=== PATIENT | male | born 1945 | race Caucasian/White ===

== ENCOUNTER → 2017-08-22 09:09 | Outpatient (CLI) | payer MEDICARE, OTHER, SELFPAY ==
--- NOTE | 2017-08-22 | DI.US.S_ITS ---
PROCEDURE: US RETRO PERITONEAL LIMITED INDICATIONS: AAA SCREENING TECHNIQUE: Real time scanning was performed of the aorta and iliac arteries, with image documentation. COMPARISON: None. FINDINGS: Aorta: Proximal aortic diameter measures 2.1 cm. Mid-aorta measures 1.7 cm. Distal aortic diameter is 1.6 cm. Iliac arteries: Right common iliac artery measures 1.2 cm. Left common iliac artery measures 1.1 cm. IMPRESSION: Negative for aneurysm Dictated by: Harman Ng M.D. on 08/22/2017 at 10:05 Approved by: Harman Ng M.D. on 08/22/2017 at 10:06
== END ==
PROVIDERS: Family Provider Family Medicine; PCP Family Medicine; Visit Provider Family Medicine
DX: Z13.6 Encounter for screening for cardiovascular disorders (principal)
CPT/HCPCS: 76775

== ENCOUNTER 2017-12-26 11:13 | Day surgery (SDC) | payer MEDICARE, OTHER, SELFPAY ==
--- NOTE | 2017-12-26 | PATH_ITS ---
[facility] Accession Number: [id number] . 01 Material submitted: . PART A: TRANSVERSE COLON POLYP @70 CM PART B: CECAL POLYP PART C: ASCENDING COLON POLYP X2 @90 CM PART D: SIGMOID POLYP @40 CM . 02 Diagnosis: A. Transverse Colon, Polyp At 70 CM, Biopsy: Tubular adenoma. . B. Cecum, Polyp, Biopsy: Benign lymphoid aggregate. . C. Ascending Colon, Polyps At 90 CM, Biopsies: Tubular adenomas. . D. Sigmoid Colon, Polyp At 40 CM, Biopsy: Tubular adenoma. BFI/12/27/2017 . 02 Electronically signed: . Kimberly Villanueva MD, Pathologist NPI- [id number] . 01 Gross description: . Received four formalin-filled containers, each labeled with the patient's name: . A. In a container labeled transverse colon polyp at 70 cm, the specimen consists of two less than 0.1 cm to 0.3 cm portions of tissue, entirely submitted in cassette A. B. In a container labeled cecal polyp, the specimen consists of two 0.2-0.3 cm portions of tissue, entirely submitted in cassette B. C. In a container labeled ascending polyp x2 at 90 cm, the specimen consists of multiple less than 0.1 cm to 0.4 cm portions of tissue, entirely submitted in cassette C. D. In a container labeled sigmoid polyp at 40 cm, the specimen consists of two less than 0.1 cm to 0.3 cm portions of tissue, entirely submitted in cassette D. ([id number]) /FRR . 02 Pathologist provided ICD-10: D12.3, D12.2, D12.5 . 02 CPT . 436817, [id number], [id number], 451234 Performed at: 01 [facility] [address] [place] [address], [place], [place] [id number] MD Jed Landis MD Phone: [phone] Performed at: 02 [facility] [address] [address] [place], [place] [id number] MD Isma Bennett MD Phone: [phone]
[2017-12-26] MEDS: SODIUM CHLORIDE 0.9% 1,000 ML 200 ML IV (12:40)
[2017-12-26 12:41] VITALS: BP 192/98; PULSE 51; RESP 16; TEMP 36.6; O2SAT 96; BMI 31.4
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
--- NOTE | 2017-12-26 13:03 | PM.PREOP ---
Pre-operative Note Interval Note Pre-op Check: Yes History & Physical Reviewed by Physician, Yes Exam Performed and Yes History & Physical exam performed today by Physician Changes: No H&P completed within 30 days and has changed as indicated here:: Patient seen and examined in the preoperative area. History physical examination documented and placed on the chart. We will proceed with colonoscopy today as planned. ASA Class (for procedural sedation): II
[2017-12-26] MEDS: fentaNYL 250 MCG/5 ML INJ IV (13:15)
[2017-12-26] MEDS: MIDAZOLAM 5 MG/5 ML VIAL IV (13:16)
--- NOTE | 2017-12-26 13:31 | PM.OP.ENDO ---
Operative Date/Time/Diagnoses Date of procedure: 12/26/17 Time of procedure: 13:32 Pre-op diagnosis: Colorectal screening Post-op diagnosis: other (Colon polyps and diverticulosis) Procedure & Clinicians Study performed: 1. Sedation per surgeon 2. Colonoscopy with cold forceps polypectomies Same procedure as scheduled: Yes Indications: 72-year-old male who presents for colorectal screening. It has been 12 years since his last examination. Colonoscopy is recommended. Surgeon: Guy Dawson Procedure Notes SCOAP/Timeout: Yes Procedure in detail: After obtaining informed consent, the patient was brought to the GI suite and placed in the left lateral decubitus position on the examination table. After placement of appropriate monitors, the patient was given incremental doses of Versed and Fentanyl until an appropriate level of sedation was achieved. A time out was held per SCOAP protocol. A digital rectal examination was performed and did not reveal any masses or obstructing lesions. The colonoscope was gently passed into the patient's anus and the entire colon navigated to the level of the cecum with minimal difficulty. Once in the cecum, the scope was withdrawn being sure to go before and beyond all mucosal folds and prominences and get an excellent examination. The findings are noted above. At the level of the rectal vault, the scope was retroflexed and the internal anal canal was examined. The scope was straightened and air aspirated from the colon. The instrument was removed from the patient's body and the procedure was concluded. The patient was allowed to awaken from sedation without difficulty and taken to the post-anesthesia care unit in good condition. Scope withdrawal time: 15:54 min Sedation minutes: 28 Findings: diverticulosis and polyp Specimen(s): other (1. Sigmoid polyp at 40 cm 2. Transverse colon polyp at 70 cm 3. Cecal polyp 4. Ascending colon polyp at 90 cm) Complications: none Recommendations: Colonscopy in 5 years, High fiber diet and Will call with biopsy results Plan for aftercare: 1. Discharged home 2. Will contact patient with biopsy results Follow up: as needed Disposition: PACU
[2017-12-26 13:40] VITALS: BP 144/86; PULSE 50; RESP 18; TEMP 37; O2SAT 98
[2017-12-26 13:57] VITALS: BP 142/84; PULSE 52; RESP 16; TEMP 37; O2SAT 98
--- NOTE | 2017-12-26 13:59 | SUR.PHASEII ---
pt tolerating po fluids, instructions reviewed with pt and his
== END 2017-12-26 14:03 | disposition home or self-care (01) ==
PROVIDERS: Family Provider Family Medicine; PCP Family Medicine; Visit Provider Surgery
PROC: 0DJD8ZZ Inspection of Lower Intestinal Tract, Via Natural or Artificial Opening Endoscopic (ICD-10-PCS; CPT 45378; principal; 2017-12-26 11:15)
DX: Z12.11 Encounter for screening for malignant neoplasm of colon (principal); K57.30 Diverticulosis of large intestine without perforation or abscess without bleeding; D12.5 Benign neoplasm of sigmoid colon; D12.3 Benign neoplasm of transverse colon; D12.0 Benign neoplasm of cecum; I10 Essential (primary) hypertension; E78.5 Hyperlipidemia, unspecified
CPT/HCPCS: 45380; 88305; 99152; 99153; J2250; J3010

== ENCOUNTER → 2020-01-28 11:25 | Outpatient (CLI) | payer MEDICARE, OTHER, SELFPAY ==
--- NOTE | 2020-01-28 11:28 | DI.RAD.S_ITS ---
PROCEDURE: XR LUMBAR SPINE 2-3V INDICATIONS: low back pain after lifting, r/o bony abnormality TECHNIQUE: 3 views of the lumbar spine were acquired. COMPARISON: None. FINDINGS: Bones: 5 [id number] vertebrae are present. There is mildly levo scoliotic bony alignment centered at L2. No vertebral body compression fractures. No suspicious bony lesions. Degenerative disc disease and facet osteoarthritis is mild to the L 3 4 level where facet osteoarthritis becomes progressively more prominent to include L4-5 and L5-S1. Degenerative disc disease is most prominent at L5-S1. Slight anterolisthesis grade 1 of L3 on L4 is present. Soft tissues: Overlying bowel gas pattern is normal. No suspicious soft tissue calcifications. IMPRESSION: No compression fracture found. Wcix-ru-eqvjhqwu degenerative changes as discussed over the lumbosacral spine with slight convex leftward scoliosis centered at L2. The degenerative changes are most pronounced both in terms of disc disease and facet osteoarthritis at L5-S1 where significant spinal and foraminal stenosis would be suspected. Dictated by: Virgilio Childress M.D. on 01/28/2020 at 12:05 Approved by: Virgilio Childress M.D. on 01/28/2020 at 12:06
== END ==
PROVIDERS: Family Provider Family Medicine; PCP Student in an Organized Health Care Education/Training Program; Referring Provider Physician Assistant; Visit Provider Physician Assistant
DX: M54.5 Low back pain (principal); M47.816 Spondylosis without myelopathy or radiculopathy, lumbar region; M47.817 Spondylosis without myelopathy or radiculopathy, lumbosacral region; M41.86 Other forms of scoliosis, lumbar region
CPT/HCPCS: 72100

== ENCOUNTER → 2021-07-28 13:23 | Outpatient (CLI) | payer MEDICARE, OTHER, SELFPAY | PROVIDERS: PCP Student in an Organized Health Care Education/Training Program; Visit Provider Physician Assistant | DX: R30.0 Dysuria (principal) | CPT/HCPCS: 87086 ==

== ENCOUNTER → 2021-12-21 07:56 | Outpatient (CLI) | payer MEDICARE, OTHER, SELFPAY ==
--- NOTE | 2021-12-21 | DI.ECHO.S_ITS ---
[facility]---------+ [facility] +---------+ : : [address] : : : : [id number] : : : : Phone: [phone]+ Echocardiogram Report + + :Name: VIDHI FLORES Study Date: 12/21/2021 Height: 71 in : :[facility] ReadingLocation: Weight: 224 lb : : Gender: Male BSA: 2.2 m2 : :: 1945 Age: 76 yrs BP: 174/103 mmHg: :Reason For Study: Palpitations : :Ordering Physician: IVY, : :SONI Performed By: Kirill Buchanan : :Referring: SONI HAYNES : + + Interpretation Summary Borderline concentric left ventricular hypertrophy with ejection fraction 60- 65%. Mild aortic regurgitation. Procedure: A two-dimensional transthoracic echocardiogram with color flow and Doppler was performed. The study quality was technically adequate. There is no prior echocardiogram noted for this patient. The patient was in normal sinus rhythm during the exam. Left Ventricle: There is borderline concentric left ventricular hypertrophy. The ejection fraction is estimated to be 60-65%. There are no focal wall motion abnormalities. Diastolic function could not be accurately assessed due to unobtainable data. Right Ventricle: The right ventricle is normal in size and function. Atria: Both atria are normal in size. The interatrial septum grossly appears intact with no obvious evidence for an atrial septal defect. Mitral Valve: The mitral valve is normal in structure and function. There is no mitral regurgitation noted. Aortic Valve: The aortic valve is grossly normal. There is mild aortic regurgitation. Tricuspid Valve: The tricuspid valve is normal in structure and function. There is trace tricuspid regurgitation. Pulmonary artery pressures cannot be estimated because of the lack of a measurable TR jet velocity. Pulmonic Valve: The pulmonic valve is not well visualized. Great Vessels: The aortic root is normal size. The IVC is of normal diameter and collapses greater than 50% with a sniff. This suggests a low right atrial pressure of 3 mm Hg. Pericardium/ Pleura There is no pericardial effusion. There is no pleural effusion. MMode/2D Measurements & Calculations LVIDd: 4.9 cm LVOT diam: 2.1 cm LVIDs: 3.3 cm Ao root diam: 3.7 cm FS: 32.7 % IVSd: 1.1 cm LVPWd: 0.80 cm LV angulo. diameter/BSA (cm/m^2): 2.2 LV sys. diameter/BSA (cm/m^2): 1.5 LA dimension: 3.6 cm RA long axis: 4.7 cm LA A2 area: 21.9 cm2 LA A4 area: 16.9 cm2 LA length (vol): 6.1 cm LA vol: 51.7 ml LA vol index: 23.3 ml/m2 TAPSE_phl: 2.7 cm Doppler Measurements & Calculations Ao V2 max: 155.0 cm/sec LVOT Max Luis Eduardo: 134.0 cm/sec Ao V2 mean: 109.0 cm/sec LV V1 max P.2 mmHg Ao max P.0 mmHg LV V1 VTI: 25.8 cm Ao mean P.0 mmHg MARQUIS(I,D): 3.2 cm2 Ao V2 VTI: 28.2 cm MARQUIS(V,D): 3.0 cm2 sev ratio: 0.91 MARQUIS indexed to BSA (cm^2/m^2): 1.4 MV E max luis eduardo: 47.5 cm/sec SV(LVOT): 89.4 ml MV A max luis eduardo: 82.5 cm/sec MV E/A: 0.58 Med Peak E' Luis Eduardo: 6.2 cm/sec E/E' med: 7.7 Lat Peak E' Luis Eduardo: 7.1 cm/sec E/E' lat: 6.7 E/e' average: 7.2 MV dec time: 0.30 sec AV VR_phl: 0.86 MV P1/2t-pr_phl: 89.0 msec MARQUIS(VTI)/BSA_phl: 1.4 Electronically signed by: Megan Mcbride on Reading Physician:12/21/2021 12:09 PM
== END ==
PROVIDERS: Family Provider Student in an Organized Health Care Education/Training Program; PCP Family Medicine; Referring Provider Internal Medicine; Visit Provider Internal Medicine
DX: R00.2 Palpitations (principal); I35.1 Nonrheumatic aortic (valve) insufficiency
CPT/HCPCS: 93246; 93306

== ENCOUNTER → 2021-12-21 13:25 | Outpatient (CLI) | payer MEDICARE, OTHER, SELFPAY ==
--- NOTE | 2022-01-11 11:33 | P.HOLT.S_ITS ---
Legal Support Analyst Report Referral & Results Date Patient Seen: 12/21/21 Requesting provider: Yumiko Workman Indication: Palpitations Duration of monitoring (days): 14 Diary information: There was 1 patient triggered event and 2 patient diary entries These 3 patient events were associated with sinus rhythm only Data: Minimum heart rate identified was 40 beats per minute at 07:23 on 01/01/2022 Maximum sinus heart rate was 119 beats per minute at 08:38 on 12/27/2021 Maximum overall heart rate was 182 beats per minute at 12:12 on 12/23/2021 during a run of SVT Less than 1% of identified beats were ventricular or supraventricular ectopic in origin, which would classify them as rare. There were 49 runs of SVT the fastest being the 4 beat run noted above the longest lasting 7.7 seconds at a rate 104 beats per minute which suggest more atrial tachycardia rather than true SVT for least some of these findings No episodes of atrial fibrillation or pauses of 3 seconds or longer were identified on this study Impression: 14 day cardiac rehabilitation specialist demonstrating rare brief runs of SVT Based on patient events there is not appear to be any dysrhythmia associated patient's sense of palpitations Clinical correlation suggested
== END ==
PROVIDERS: Family Provider Student in an Organized Health Care Education/Training Program; PCP Family Medicine; Referring Provider Internal Medicine; Visit Provider Internal Medicine
DX: R00.2 Palpitations (principal)
CPT/HCPCS: 93246; 93248

== ENCOUNTER → 2022-03-01 08:48 | Outpatient (CLI) | payer MEDICARE, OTHER, SELFPAY ==
[2022-03-01 11:05] LABS: COVID19 -Nasal RAPID Negative (Negative)
--- NOTE | 2022-03-02 21:45 | DI.NM.S_ITS ---
DATE OF SERVICE: 03/01/2022 PROCEDURE: Exercise perfusion study. INDICATION: Chest pain with underlying hypertension and hyperlipidemia. RADIOPHARMACEUTICAL: 26.1 millicurie technetium-99m Myoview IV was injected at stress and 25.6 millicurie technetium-99m Myoview IV was injected at rest. CARDIAC STRESS: The patient underwent exercise stress test under the supervision of an attending staff. He walked on Antwon protocol for 5 minutes and 23 seconds, achieved 97 percent of target heart rate. Resting blood pressure 126/88 and peak blood pressure 174/90 mmHg. Achieved 7 METs of workload. TETO positive 1 percent. Baseline rhythm was sinus with mild first- degree AV block. During stress, no convincing ischemic changes seen. Rare PACs and PVCs and one 3-beat run of SVT seen. No obvious atrial fibrillation or ventricular tachycardia seen. No chest discomfort. Had some shortness of breath. RAW DATA: There is increased subdiaphragmatic activity. GATED STUDY: Stress LV ejection fraction is 72 percent without any obvious wall motion abnormalities. Resting end-diastolic volume 92 mL. TID ratio 0.88, which is within normal limits. Lung/heart ratio 0.20, which is within normal limits. The patient's weight is 234 pounds. MYOCARDIAL PERFUSION SCAN: Stress supine, resting supine and stress prone images were compared to compared to each other. Stress supine and resting supine images revealed small size, mildly decreased perfusion of base to mid inferior wall, as well as basal anterior wall, which got resolved during stress prone images, suggestive of tissue attenuation artifact. CONCLUSION: I will call this study a normal myocardial perfusion study with evidence of tissue attenuation artifact, as stated above, that got resolved during prone images. Preserved left ventricular function. Considering his age, fair exercise tolerance. Normal hemodynamic response. No complex arrhythmias. Overall, low-risk study. Alin Waldrop - GARCIA/ubaldo/joe doc#: [id number]/job#: [id number] dd: 03/02/2022 16:56:00 dt: 03/02/2022 21:28:00 DICTATING MD/COPIES TO: Raghavendra Lewis MD COPIES MNE: JAZZ;
== END ==
PROVIDERS: Family Provider Student in an Organized Health Care Education/Training Program; PCP Family Medicine; Referring Provider Internal Medicine; Visit Provider Internal Medicine
DX: R07.89 Other chest pain (principal); I10 Essential (primary) hypertension; E78.5 Hyperlipidemia, unspecified; Z20.822 Contact with and (suspected) exposure to COVID-19
CPT/HCPCS: 78452; 87635; 93017; A9502

== ENCOUNTER → 2022-08-20 07:49 | Outpatient (CLI) | payer MEDICARE, OTHER, SELFPAY ==
--- NOTE | 2022-08-26 08:26 | PM.PFT.1 ---
Pulmonary Function Test Referral & Results Date Patient Seen: 08/20/22 Results: The spirometry demonstrates an FVC of 4.77 L which is 108% of predicted. The FEV1 was measured at 3.14 L which is 99% of predicted. The FEV1/FVC ratio was 66 which is 91% of predicted. Following the administration of bronchodilator there was 4.57 L. Lung volumes show an SVC of 97% which is 25.48 of predicted. The diffusing capacity was measured at 25.48 which is 72% of predicted. No hemoglobin value was provided, so no correction for potential anemia could be made, if appropriate. The maximum voluntary ventilation was normal Interpretation: This study demonstrates normal spirometry however there is a mild reduction diffusing capacity suggesting the presence of disease at the capillary alveolar level Clinical correlation suggested
== END ==
PROVIDERS: Family Provider Student in an Organized Health Care Education/Training Program; PCP Family Medicine; Referring Provider Family Medicine; Visit Provider Family Medicine
DX: R06.09 Other forms of dyspnea (principal); Z87.891 Personal history of nicotine dependence; J98.8 Other specified respiratory disorders
CPT/HCPCS: 94010; 94726; 94729

== ENCOUNTER → 2022-09-15 14:47 | Outpatient (CLI) | payer MEDICARE, OTHER, SELFPAY ==
[2022-09-15 16:07] LABS: BUN Creatinine Ratio 21.2 (6-22); Blood Urea Nitrogen 25 mg/dL (9-20); Calcium 8.8 mg/dL (8.4-10.2); Carbon Dioxide 29 mmol/L (22-32); Chloride 100 mmol/L (98-107); Estimated Glomerular Filt Rate > 60 mL/min (>60); Glucose 97 mg/dL (80-110); HEMOLYSIS < 15 (0-50); Potassium 3.7 mmol/L (3.4-5.1); Sodium 135 mmol/L (137-145)
== END ==
PROVIDERS: Family Provider Student in an Organized Health Care Education/Training Program; PCP Family Medicine; Referring Provider Family Medicine; Visit Provider Family Medicine
DX: R06.09 Other forms of dyspnea (principal); Z79.899 Other long term (current) drug therapy; N18.30 Chronic kidney disease, stage 3 unspecified
CPT/HCPCS: 36415; 80048

== ENCOUNTER → 2022-09-21 13:57 | Outpatient (CLI) | payer MEDICARE, OTHER, SELFPAY ==
--- NOTE | 2022-09-21 | DI.CT.S_ITS ---
PROCEDURE: CT CHEST W CON INDICATIONS: Unspecified abnormalities of breathing TECHNIQUE: After the administration of intravenous contrast, 5 mm thick sections acquired from the pulmonary apices to the posterior costophrenic angles. 1 mm axial lung, 5 mm thick coronal and sagittal reformats and 7 mm axial MIP were acquired. For radiation dose reduction, the following was used: automated exposure control, adjustment of mA and/or kV according to patient size. COMPARISON: [facility], CT, PE STUDY (CTA CHEST), 05/01/2016, 17:18. FINDINGS: Image quality: Excellent. Lungs and pleura: No acute air space opacities. No pleural effusions or pneumothorax. Central and peripheral airways are patent and normal in caliber. Mediastinum: Heart size is normal. No pericardial effusion. No mediastinal or hilar adenopathy by size criteria. Thoracic aorta and central pulmonary arteries are normal in size. Esophagus is normal in caliber. No hiatal hernia. Bones and chest wall: No suspicious bony lesions. No vertebral body compression fractures. Age-appropriate bony degenerative changes are seen. Mild dextroconvex scoliotic curvature is seen. No axillary or supraclavicular adenopathy by size criteria. Thyroid gland demonstrates no significant abnormality. Abdomen: Along the posterior aspect of the right kidney, there is a simple water density cyst seen. The visualized portions of the upper abdominal structures are otherwise unremarkable for imaging technique. IMPRESSION: Clear lungs. Additional findings: Mild dextroconvex scoliotic curvature Simple appearing right renal cyst Dictated by: Misael Macias M.D. on 09/21/2022 at 17:58 Approved by: Misael Macias M.D. on 09/21/2022 at 18:00
== END ==
PROVIDERS: Family Provider Student in an Organized Health Care Education/Training Program; PCP Family Medicine; Referring Provider Family Medicine; Visit Provider Family Medicine
DX: R06.9 Unspecified abnormalities of breathing (principal); N28.1 Cyst of kidney, acquired; M41.9 Scoliosis, unspecified
CPT/HCPCS: 71260; Q9967

== ENCOUNTER → 2023-08-31 11:07 | Outpatient (CLI) | payer MEDICARE, OTHER, SELFPAY ==
--- NOTE | 2023-08-31 11:08 | DI.CT.S_ITS ---
PROCEDURE: CT IVP A/P W/WO INDICATIONS: Microscopic Hematuria TECHNIQUE: Optional 5 mm thick noncontrast images acquired from the diaphragm to the symphysis pubis. After the administration of intravenous contrast, 5 mm thick images acquired from the diaphragm to the symphysis pubis after a 10-minute delay. 2 mm thick coronal and sagittal reformats were then performed of the kidneys and ureters. For radiation dose reduction, the following was used: automated exposure control, adjustment of mA and/or kV according to patient size. COMPARISON: [facility], CT, CT-IVP, 02/18/2010, 14:57. FINDINGS: Image quality: Diagnostic. Kidneys and Ureters: Both kidneys are normal in size, without hydronephrosis or nephrolithiasis. No perinephric fat stranding. There is normal bilateral renal enhancement. Renal calyces appear normal in morphology when filled with contrast. Opacified portions of both ureters demonstrate normal caliber. The right mid and distal ureter is not well opacified. Multiple clips in the left pelvis. Prostatectomy. Bladder: Bladder wall thickness is normal. No calcified bladder stones. OTHER: Lower chest: Unremarkable. Liver: No solid mass. Trace thickening adjacent to the posterior margin of the liver, (4/66). Tiny cysts suspected. Gallbladder: No radiopaque gallstones or wall thickening. Biliary ducts: No biliary dilation. Pancreas: No ductal dilation. Fatty atrophy. Spleen: Size is within normal limits. Adrenal Glands: No adrenal nodules. Stomach and Bowel: Normal colonic caliber, without significant wall thickening. Normal appendix. Peritoneum: No abnormal intraperitoneal fluid. No free air. Ventral Wall: No hernia. Ventral abdominal suture. Abdominal Nodes: No retroperitoneal or mesenteric adenopathy by size criteria. Vessels: Aorta and inferior vena cava are normal in size. PELVIS: Pelvic Organs: Small bilateral hydroceles. Prostatectomy. Pelvic Nodes: No enlarged lymph nodes. Miscellaneous: No inguinal hernias are seen. Bones: No aggressive osseous abnormality. IMPRESSION: 1. No kidney stones. No hydronephrosis. 2. No solid renal mass. 3. No upper urinary tract filling defect identified. 4. Prostatectomy. No adenopathy. No suspicious osseous lesion seen. Dictated by: Garrick Beyer M.D. on 08/31/2023 at 16:14 Approved by: Garrick Beyer M.D. on 08/31/2023 at 16:23
[2023-08-31 11:48] LABS: Estimated Glomerular Filt Rate 54 mL/min (>60)
== END ==
PROVIDERS: Radiology Diagnostic Radiology; Family Provider Student in an Organized Health Care Education/Training Program; PCP Family Medicine; Referring Provider Specialist; Visit Provider Specialist
DX: R31.29 Other microscopic hematuria (principal); N43.3 Hydrocele, unspecified
CPT/HCPCS: 36415; 74178; 82565; Q9967

== ENCOUNTER 2023-09-05 21:23 | Emergency (ER) | payer MEDICARE, OTHER, SELFPAY ==
[2023-09-05 21:28] VITALS: BP 184/98; PULSE 59; RESP 18; TEMP 36.3; BMI 32.1
[2023-09-05] MEDS: FLUORESCEIN 1 MG STRIP EYE-LEFT (21:52)
[2023-09-05] MEDS: PROPARACAINE 0.5% OPHTH SOL 1 DROPS EYE-LEFT (21:53)
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
[2023-09-05] MEDS: ERYTHROMYCIN OPHTH 1 GM OINT 1 APPLIC EYE-LEFT (22:04)
[2023-09-05 22:19] VITALS: BP 176/84; PULSE 60; RESP 18; O2SAT 100
== END 2023-09-05 22:21 | disposition home or self-care (01) ==
PROVIDERS: Emergency Provider Emergency Medicine; Family Provider Student in an Organized Health Care Education/Training Program; PCP Family Medicine
DX: S05.02XA Injury of conjunctiva and corneal abrasion without foreign body, left eye, initial encounter (principal); X58.XXXA Exposure to other specified factors, initial encounter
CPT/HCPCS: 99282; 99283

== ENCOUNTER → 2023-12-08 08:50 | Outpatient (CLI) | payer MEDICARE, OTHER, SELFPAY ==
--- NOTE | 2023-12-08 | DI.MRI.S_ITS ---
PROCEDURE: MR LUMBAR SPINE WO CON INDICATIONS: CHRONIC BILATERAL LOW BACK PAIN W BI SCIATICA TECHNIQUE: Noncontrast sagittal T1 spin echo and T2 fast echo, sagittal STIR, and T2 fast spin echo through the lumbar spine. In cases with scoliosis, additional coronal T2 fast spin echo may be performed. COMPARISON: None. FINDINGS: Image quality: Excellent. Alignment and Curvature: Trace anterolisthesis of L3 on L4. Bone Marrow: Marrow is of normal overall signal. No acute vertebral body compression fractures. Spinal Cord: Conus medullaris terminates at the L1-L2 level. Visualized cord demonstrates normal signal and size. Paraspinous Soft Tissues: No paravertebral masses. T12-L1: Facet hypertrophy. No canal stenosis or foraminal stenosis. L1-L2: Facet hypertrophy. No canal stenosis or foraminal stenosis. L2-L3: Mild disc bulge. Facet and ligament hypertrophy. No significant canal stenosis. Mild bilateral foraminal stenosis. L3-L4: The combination of trace anterolisthesis, moderate diffuse disc bulge, and prominent facet and ligament hypertrophy and epidural lipomatosis result in severe canal stenosis. Reference axial image 22 of series 5. [id number] bilateral foraminal stenosis. L4-L5: Right paracentral annulus tear plus diffuse disc bulge, eccentric to the right. Facet and ligament hypertrophy. Epidural lipomatosis. Moderate canal stenosis. Reference angled axial image 15 of series 6. Mild left foraminal stenosis. L5-S1: Chronic disc height loss. Disc bulge. Facet hypertrophy. No canal stenosis or foraminal stenosis. IMPRESSION: 1. Multilevel underlying facet arthropathy. 2. Canal stenosis is severe at L3-L4 and moderate at L4-L5. 3. No foraminal nerve root impingement. Dictated by: Aden Bauman M.D. on 12/08/2023 at 10:29 Approved by: Aden Bauman M.D. on 12/08/2023 at 10:36
== END ==
PROVIDERS: Family Provider Student in an Organized Health Care Education/Training Program; PCP Family Medicine; Referring Provider Family Medicine; Visit Provider Family Medicine
DX: M47.27 Other spondylosis with radiculopathy, lumbosacral region (principal); M47.26 Other spondylosis with radiculopathy, lumbar region; M48.061 Spinal stenosis, lumbar region without neurogenic claudication; M51.16 Intervertebral disc disorders with radiculopathy, lumbar region; M51.17 Intervertebral disc disorders with radiculopathy, lumbosacral region; G89.29 Other chronic pain
CPT/HCPCS: 72148

== ENCOUNTER → 2024-01-24 11:10 | Outpatient (CLI) | payer MEDICARE, OTHER, SELFPAY ==
--- NOTE | 2024-01-24 11:11 | DI.MRI.S_ITS ---
PROCEDURE: MR CERVICAL SPINE WO CON INDICATIONS: CERVICAL STENOSIS TECHNIQUE: Noncontrast sagittal T1 spin echo and T2 fast spin echo, sagittal STIR, foraminal oblique sagittal T2 fast spin echo, and axial gradient echo or T2 fast spin echo through the cervical spine. COMPARISON: None. FINDINGS: Image quality: Excellent. Alignment and Curvature: Straightening of the normal cervical lordosis. Bone Marrow: Marrow demonstrates normal overall signal. Spinal Cord: Visualized spinal cord has normal size and signal. No cerebellar tonsillar herniation. Paraspinous Soft Tissues: No paravertebral masses. Prevertebral soft tissues are normal in thickness. C2-C3: Small posterior disc osteophyte complex. Disc desiccation. No central canal stenosis. Mild facet and uncovertebral arthropathy. No significant neural foraminal stenosis. C3-C4: Disc desiccation and mild posterior disc osteophyte complex abutting the ventral cord. Mild central canal stenosis. Facet and uncovertebral arthropathy. [id number] bilateral neural foraminal stenosis. C4-C5: Disc desiccation and minimal posterior disc osteophyte complex. No central canal stenosis. Facet uncovertebral arthropathy. Mild bilateral neural foraminal stenosis. C5-C6: Disc desiccation and moderate disc height loss. Posterior disc osteophyte complex. Mild central canal stenosis. Facet and uncovertebral arthropathy. Severe right and mild left neural foraminal stenosis. C6-C7: Disc desiccation and mild posterior disc osteophyte complex. No significant central canal stenosis. Facet and uncovertebral arthropathy. No significant neural foraminal stenosis. C7-T1: Disc desiccation and minimal posterior disc osteophyte complex. No central canal or neural foraminal stenosis. IMPRESSION: 1. Multilevel degenerative changes of the cervical spine as described above. 2. Mild central canal stenosis at C3-C4 and C5-C6. 3. Severe right neural foraminal stenosis at C5-C6. Dictated by: Jeramie Herndon M.D. on 01/24/2024 at 14:59 Approved by: Jeramie Herndon M.D. on 01/24/2024 at 15:15
== END ==
PROVIDERS: Family Provider Student in an Organized Health Care Education/Training Program; PCP Family Medicine; Referring Provider Neurological Surgery; Visit Provider Neurological Surgery
DX: M48.02 Spinal stenosis, cervical region (principal); M47.812 Spondylosis without myelopathy or radiculopathy, cervical region
CPT/HCPCS: 72141